=== PATIENT | male | born 1990 | race Caucasian/White ===

== ENCOUNTER 2021-03-27 18:17 | Emergency (ER) | payer BC, MEDICAID ==
[~2021-03-27] VITALS: Ht 182.9 cm; Wt 95.3 kg
[2021-03-27 19:38] LABS: Basophils # (auto) 0.1 10 ^3/uL (0-0.2); Eosinophils # (auto) 0.1 10 ^3/uL (0-0.8); Eosinophils % (auto) 2.1 % (0.0-7.0); Hematocrit 45.8 % (41.0-53.0); Hemoglobin 16.3 g/dL (13.5-17.5); Lymphocytes # (auto) 1.6 10 ^3/uL (0.4-5.4); Lymphocytes % (auto) 27.3 % (10.0-50.0); Mean Corpuscular Hgb Conc. 35.5 g/dL (32.0-36.0); Mean Corpuscular Volume 90.1 fL (80.0-100.0); Monocytes # (auto) 0.6 10 ^3/uL (0-1.3); Monocytes % (auto) 10.9 % (0.0-12.0); Neutrophils # (auto) 3.4 10 ^3/uL (1.6-8.6); Neutrophils % (auto) 58.7 % (37.0-80.0); Nucleated Red Blood Cells % 0.1 %; Red Blood Cells 5.08 10^6/uL (4.5-5.90); Red Cell Distribution Width 12.5 % (11.8-14.3); White Blood Cell 5.8 10^3/uL (4.4-10.8)
[2021-03-27 19:54] LABS: Albumin 3.8 g/dL (3.4-5.0); Anion Gap 5 (5-15); Blood Alcohol < 3.0 mg/dL (0-5); Blood Urea Nitrogen 16 mg/dL (7-18); Calcium 8.6 mg/dL (8.5-10.1); Carbon Dioxide 30 mmol/L (21-32); Chloride 104 mmol/L (98-107); Glucose 110 mg/dL (74-106); Potassium 3.8 mmol/L (3.5-5.1); Sodium 139 mmol/L (136-145)
[2021-03-27 19:57] LABS: Alanine Aminotransferase 34 U/L (16-61); Alkaline Phosphatase 105 U/L (45-117); Aspartate Aminotransferase 21 U/L (15-37); BUN/Creatinine Ratio 16.2; Bilirubin, Total 0.4 mg/dL (0.2-1.0); GFR African American 115 mL/min; GFR Non-African American 95 mL/min
[2021-03-27 20:24] VITALS: BP 122/81
== END 2021-03-27 20:25 | disposition home or self-care (01) ==
LOC: EDBD 18:17 → ER 18:19
DX: R55 Syncope and collapse (principal); F12.10 Cannabis abuse, uncomplicated
CPT/HCPCS: 36415; 70450; 71045; 80053; 80320; 85025; 93005

== ENCOUNTER 2023-09-09 09:57 | Emergency (ER) | payer BC, MEDICAID ==
[~2023-09-09] VITALS: Ht 182.9 cm; Wt 92.8 kg
[2023-09-09 10:23] VITALS: BP 152/92; PULSE 82; RESP 18; TEMP 98.1; O2SAT 98
[2023-09-09 11:14] LABS: Basophils # (auto) 0.1 10 ^3/uL (0-0.2); Basophils % (auto) 2.1 % (0.0-2.0); Eosinophils # (auto) 0.1 10 ^3/uL (0-0.8); Eosinophils % (auto) 2.4 % (0.0-7.0); Hematocrit 45.7 % (41.0-53.0); Hemoglobin 16.2 g/dL (13.5-17.5); Lymphocytes # (auto) 1.7 10 ^3/uL (0.4-5.4); Lymphocytes % (auto) 41.7 % (10.0-50.0); Mean Corpuscular Hemoglobin 31.7 pg (28.0-32.0); Mean Corpuscular Hgb Conc. 35.4 g/dL (32.0-36.0); Mean Corpuscular Volume 89.4 fL (80.0-100.0); Monocytes # (auto) 0.4 10 ^3/uL (0-1.3); Monocytes % (auto) 10.7 % (0.0-12.0); Neutrophils # (auto) 1.7 10 ^3/uL (1.6-8.6); Neutrophils % (auto) 43.1 % (37.0-80.0); Nucleated Red Blood Cells % 0.2 %; Red Blood Cells 5.11 10^6/uL (4.5-5.90); Red Cell Distribution Width 12.3 % (11.8-14.3)
[2023-09-09 11:18] LABS: Chloride 108 mmol/L (98-107); Sodium 140 mmol/L (136-145)
[2023-09-09 11:19] LABS: Anion Gap 3 (5-15); Calcium 9.7 mg/dL (8.7-10.4); Carbon Dioxide 29 mmol/L (20-30)
[2023-09-09 11:24] LABS: BUN/Creatinine Ratio 10.6 (10.0-20.0); Blood Urea Nitrogen 10 mg/dL (9-23); Glucose 106 mg/dL (74-106)
[2023-09-09] MEDS ORDERED: NAP500T PO (11:48)
[2023-09-09] MEDS: KETOROLAC TROMETH 30 MG/ML 1ML VIAL IM ONE (12:20)
== END 2023-09-09 12:22 | disposition home or self-care (01) ==
LOC: ER 09:57
DX: S86.812A Strain of other muscle(s) and tendon(s) at lower leg level, left leg, initial encounter (principal); F15.90 Other stimulant use, unspecified, uncomplicated; Z79.899 Other long term (current) drug therapy; X58.XXXA Exposure to other specified factors, initial encounter; Y93.89 Activity, other specified; Y92.096 Garden or yard of other non-institutional residence as the place of occurrence of the external cause; Y99.8 Other external cause status
CPT/HCPCS: 36415; 80048; 85025; 85379; 96372; 99283; J1885

== ENCOUNTER 2024-12-21 06:59 | Inpatient (IN) | payer MEDICAID, SELFPAY ==
[~2024-12-21] VITALS: Ht 182.9 cm; Wt 90.0 kg
[~2024-12-21 06:59] MED LIST: NAP500T PO
--- NOTE | 2024-12-21 07:19 | ECG ---
[facility] Test Date: 2024-12-21 Test Time: 07:11:01 Pat Name: CHAS PRESCOTT Department[facility] ED Room: [address] [place] [address] Gender: M Residential Advisor: SAM : 1990 Requested By: DARRION KHAN Order Number: [id number] Reading MD: Jose Luis Marie Measurements Intervals [place] Rate: 48 P: 69 NH: 149 QRS: 62 QRSD: 98 T: 71 QT: 477 QTc: 427 Interpretive Statements Sinus bradycardia Electronically Signed On 12-21-2024 15:19:02 PDT by Jose Luis Marie Please click the below link to view image of tracing.
--- NOTE | 2024-12-21 07:20 | ED.PDOC ---
HPI Comments 34 year old male presents to the ED with a chief complaint of chest pain onset today (12/21/24). Per EMS, patient was driving to work, began experiencing RT sided chest pain, initially rated pain 7/10, currently rates pain 1/10. Patient states he began experiencing Rt sided chest pain, described as a heavy sensation, as well as dizziness, nausea, LT sided facial tingling. He also states he has been under severe stress recently. Patient experienced similar symptoms in the past, had workup, was negative. Denies shortness of breath, fever, chills, cough, cold, congestion, vomiting, diarrhea, abdominal pain, headache, dysuria. No other symptoms or modifying factors present at this time. Time Seen by MD: 07:15 Primary Care Provider: RUPERT Reviewed Notes: Medications, Allergies Allergies: Coded Allergies: NO KNOWN ALLERGIES (Unverified , 03/27/21) Home Meds Active Scripts Naproxen (NAPROSYN TABLET) 500 Mg Tb, 1 TAB PO BIDPC for 10 Days, #20 TAB 0 Refills Prov:GIULIANA MCDANIEL NP 09/09/23 Information Source: Patient, Emergency Med Personnel Mode of Arrival: EMS Severity: Moderate Timing: Hours Duration: Since onset Prehospital treatment: None Location: Chest (R) Radiation: No Radiation Quality: Sharp, Heavy Onset: At Rest Cardiac Risk Factors: None PE Risk Factors: None History of: Similar pain in past Modifying Factors: Nothing Past Medical History PAST MEDICAL HISTORY: Denies Surgical History: Denies all surgeries Family History Family History: No family hx of Cancer, No family hx of DM, No family hx of Heart cherri Social History Smoker: Non-Smoker Alcohol: Occasionally Drugs: Denies Drug Use, Marijuana Lives In: Home Constitutional: denies: chills, diaphoresis, fatigue, fever, malaise, sweats, weakness, others EENTM: denies: blurred vision, double vision, ear bleeding, ear discharge, ear drainage, ear pain, ear ringing, eye pain, eye redness, hearing loss, mouth pain, mouth swelling, nasal discharge, nose bleeding, nose congestion, nose pain, photophobia, tearing, throat pain, throat swelling, voice changes, others Respiratory: denies: cough, hemoptysis, orthopnea, SOB at rest, shortness of breath, SOB with excertion, stridor, wheezing, others Cardiovascular: reports: chest pain; denies: dizzy spells, diaphoresis, Dyspnea on exertion, edema, irregular heart beat, left arm pain, lightheadedness, palpitations, PND, syncope, others Gastrointestinal: reports: nausea; denies: abdomen distended, abdominal pain, blood streaked bowels, constipated, diarrhea, dysphagia, difficulty swallowing, hematemesis, melena, poor appetite, poor fluid intake, rectal bleeding, rectal pain, vomiting, others Genitourinary: denies: burning, dysuria, flank pain, frequency, hematuria, incontinence, penile discharge, penile sore, pain, testicle pain, testicle swelling, urgency, others Neurological: reports: dizziness, tingling (LT facial); denies: fainting, headache, left sided numbness, left sided weakness, numbness, paresthesia, pre-existing deficit, right sided numbness, right sided weakness, seizure, speech problems, tremors, weakness, others Musculoskeletal: denies: back pain, gout, joint pain, joint swelling, muscle pain, muscle stiffness, neck pain, others Integumetry: denies: bruises, change in color, change in hair/nails, dryness, laceration, lesions, lumps, rash, wounds, others Allergic/Immunocompromised: denies: Difficulty Healing, Frequent Infections, Hives, Itching, others Hematologic/Lymphatic: denies: anemia, blood clots, easy bleeding, easy bruising, swollen glands, others Endocrine: denies: excessive hunger, excessive sweating, excessive thirst, excessive urination, flushing, intolerance to cold, intolerance to heat, unexplained weight gain, unexplained weight loss, others Psychiatric: denies: anxiety, bipolar disorder, depression, hopeless, panic disorder, schizophrenia, sleepless, suicidal, others All Other Systems: Reviewed and Negative Physical Exam General Appearance: Moderate Distress, Normal HEENT: Normal ENT Inspection, Pharynx Normal, TMs Normal Neck: Full Range of Motion, Non-Tender, Normal, Normal Inspection Respiratory: Chest Non-Tender, Lungs Clear, No Accessory Muscle Use, No Respiratory Distress, Normal Breath Sounds Cardiovascular: Bradycardia, No Edema, No JVD, No Murmur, No Gallop, Normal Peripheral Pulses Breast Exam: Deferred Gastrointestinal: No Organomegaly, Non Tender, No Pulsatile Mass, Normal Bowel Sounds, Soft Genitalia: Deferred Pelvic: Deferred Rectal: Deferred Extremities: No calf tenderness, Normal capillary refill, Normal inspection, Normal range of motion, Non-tender, No pedal edema Musculoskeletal : Apperance: Normal Neurologic: Alert, jockey agent II-XII nml as Tested, No Motor Deficits, Normal Affect, Normal Mood, No Sensory Deficits Cerebellar Function: Normal Reflexes: Normal Skin: Dry, Normal Color, Warm Peripheral Pulses: 3+ Radial (R), 3+ Radial (L) Lymphatic: No Adenopathy EKG EKG : Pulse Rate (adult): 48 Cardiac Rhythm: SB Was a procedure done? Was a procedure done?: No CP Differential Dx Differential Diagnosis: A-fib, A-Flutter, Angina, Anxiety / Panic Attack, Atrial Dysrhythmia, Electrolyte Disorder X-Ray, Labs, Meds, VS Vital Signs Date Time Temp Pulse Resp B/P (MAP) Pulse Ox O2 Delivery O2 Flow Rate FiO2 12/21/24 12:00 66 12/21/24 10:12 44 12/21/24 08:26 98.2 51 16 136/87 (103) 100 98.2 12/21/24 08:26 51 16 100 Room Air 12/21/24 08:08 45 12/21/24 07:20 48 12/21/24 07:11 48 12/21/24 07:11 97.9 64 16 131/82 98 97.9 Lab Test 12/21/24 10:06 12/21/24 08:01 12/21/24 07:08 Range/Units D-Dimer, Quantitative < 0.19 0.0-0.49 mg/L FEU Troponin I High Sensitivity < 3 L < 3 L < 3 L </=54 ng/L White Blood Count 5.5 4.4-10.8 10^3/uL Red Blood Count 5.15 4.5-5.90 10^6/uL Hemoglobin 16.3 13.5-17.5 g/dL Hematocrit 45.5 41.0-53.0 % Mean Corpuscular Volume 88.4 80.0-100.0 fL Mean Corpuscular Hemoglobin 31.7 28.0-32.0 pg Mean Corpuscular Hemoglobin Concent 35.9 32.0-36.0 g/dL Red Cell Distribution Width 12.4 11.8-14.3 % Platelet Count 201 140-450 10^3/uL Mean Platelet Volume 9.7 6.9-10.8 fL Neutrophils (%) (Auto) 73.9 37.0-80.0 % Lymphocytes (%) (Auto) 13.9 10.0-50.0 % Monocytes (%) (Auto) 9.2 0.0-12.0 % Eosinophils (%) (Auto) 1.9 0.0-7.0 % Basophils (%) (Auto) 1.1 0.0-2.0 % Neutrophils # (Auto) 4.1 1.6-8.6 10 ^3/uL Lymphocytes # (Auto) 0.8 0.4-5.4 10 ^3/uL Monocytes # (Auto) 0.5 0-1.3 10 ^3/uL Eosinophils # (Auto) 0.1 0-0.8 10 ^3/uL Basophils # (Auto) 0.1 0-0.2 10 ^3/uL Nucleated Red Blood Cells 0.1 % Sodium Level 143 136-145 mmol/L Potassium Level 4.1 3.5-5.1 mmol/L Chloride Level 108 H 98-107 mmol/L Carbon Dioxide Level 26 20-31 mmol/L Anion Gap 9 5-15 Blood Urea Nitrogen 11 9-23 mg/dL Creatinine 1.02 0.700-1.30 mg/dL Glomerular Filtration Rate Calc 100 >90 mL/min BUN/Creatinine Ratio 10.8 10.0-20.0 Serum Glucose 110 H 74-106 mg/dL Hemoglobin A1c 4.9 <5.7 % A1C Calcium Level 9.3 8.7-10.4 mg/dL Triglycerides Level 51 < 150 mg/dL Cholesterol Level 134 < 200 mg/dL LDL Cholesterol 97 < 100 mg/dL HDL Cholesterol 30 L 40-59 mg/dL Thyroid Stimulating Hormone (TSH) 1.14 0.55-4.78 uIU/mL Current Medications Medications (Trade) Dose Ordered Sig/Jaun Route Start Time Stop Time Status Last Admin Aspirin 325 mg ONCE ONCE PO 12/21/24 07:30 12/21/24 07:31 DC 12/21/24 07:35 Patient alert. Complaining of chest pain. Was given aspirin. Vitals stable. EKG does show sinus bradycardia. Saturation pristine on room air. He does not exercise. He was complaining of dizziness. Explained to the patient. Continue monitoring. Time of 1ST Reevaluation: 07:45 Reevaluation 1ST: Unchanged Patient Education/Counseling: Diagnosis, Treatment, Prognosis Family Education/Counseling: No Family Present SEPSIS Sepsis Screen Physician Orders Electrocardigram (12/21/24 07:14) Electrocardigram (12/21/24 08:14) Electrocardigram (12/21/24 10:14) Head Without Contrast (12/21/24 09:15) Vital Signs Date Time Temp Pulse Resp B/P (MAP) Pulse Ox O2 Delivery O2 Flow Rate FiO2 12/21/24 12:00 66 12/21/24 10:12 44 12/21/24 08:26 98.2 51 16 136/87 (103) 100 98.2 12/21/24 08:26 51 16 100 Room Air 12/21/24 08:08 45 12/21/24 07:20 48 12/21/24 07:11 48 12/21/24 07:11 97.9 64 16 131/82 98 97.9 Laboratory Tests Test 12/21/24 07:08 White Blood Count 5.5 10^3/uL (4.4-10.8) Medications Medications Dose Ordered Sig/Jaun Route Start Time Stop Time Status Last Admin Dose Admin Aspirin 325 mg ONCE ONCE PO 12/21/24 07:30 12/21/24 07:31 DC 12/21/24 07:35 Departure 1 Departure Time of Disposition: 09:15 Impression: Primary Impression: Symptomatic bradycardia Disposition: ADMITTED INPATIENT Admit to: Med Surg Condition: Guarded Critical Care Note Critical Care Time?: Yes (90 min-critical care time only) Stability Stability form required: No Heart Score Heart Score: Heart Score Response (Comments) Value History Slightly Suspicious 0 EKG Normal 0 Age <45 0 Risk Factors No known risk factors 0 Troponin Normal limit 0 Total 0 I personally scribed for DARRION KHAN MD ([email or web address]) on 12/21/24 at 07:20. Electronically submitted by Olivia Garcia [email or web address]). DARRION KHAN MD Dec 21, 2024 07:20
[2024-12-21 07:35] LABS: Potassium 4.1 mmol/L (3.5-5.1); Sodium 143 mmol/L (136-145)
[2024-12-21 07:36] LABS: Anion Gap 9 (5-15); Calcium 9.3 mg/dL (8.7-10.4); Carbon Dioxide 26 mmol/L (20-31)
[2024-12-21 07:41] LABS: BUN/Creatinine Ratio 10.8 (10.0-20.0); Blood Urea Nitrogen 11 mg/dL (9-23)
[2024-12-21 07:51] LABS: Chloride 108 mmol/L (98-107); Glucose 110 mg/dL (74-106)
[2024-12-21 10:14] LABS: Hematocrit 45.5 % (41.0-53.0); Hemoglobin 16.3 g/dL (13.5-17.5); Mean Corpuscular Hemoglobin 31.7 pg (28.0-32.0); Mean Corpuscular Volume 88.4 fL (80.0-100.0); Nucleated Red Blood Cells % 0.1 %
--- NOTE | 2024-12-21 10:19 | DVH ---
EXAM: CT HEAD WITHOUT CONTRAST INDICATION: dizzy TECHNIQUE: CT of the head without intravenous contrast. Radiation Dose : 1. Head: CT Dose: CTDI volume is 62.91 mGy. Dose-length product is 1239.52 mGy*cm The dose indicators for CT are the volume Computed Tomography (CT) Dose Index (CTDIvol) and the Dose Length Product (DLP), and are measured in units of mGy and mGy-cm, respectively. These indicators are not patient dose, but values generated from the CT scanner acquisition factors. The report includes radiation exposure data for exposures received during this examination. COMPARISON: None FINDINGS: There is no evidence of acute intracranial hemorrhage, extra-axial collection, mass effect, midline s hift, herniation or hydrocephalus. The ventricles, sulci and cisterns are age appropriate. The llanos-white differentiation is intact. The visualized paranasal sinuses and mastoid air cells are clear. The surrounding soft tissues and osseous structures are unremarkable. IMPRESSION: No acute intracranial abnormality. Radiation optimization: All CT scans at this facility use at least one of these dose optimization maria ines hniques: automated exposure control mA and/or kV adjustment per patient size (includes targeted exam s where dose is matched to clinical indication) or iterative reconstruction.
[2024-12-21] MEDS ORDERED: NITROGLYCERIN 0.4 MG SL TAB SL PRN (12:15)
[2024-12-21] MEDS ORDERED: HYDROcodone-ACET 5/325MG TAB PO PRN (12:15)
[2024-12-21] MEDS ORDERED: DOCUSATE SOD 100 MG CAP PO PRN (12:15)
[2024-12-21] MEDS ORDERED: ACETAMINOPHEN 325 MG TAB PO PRN (12:15)
[2024-12-21] MEDS ORDERED: MORPHINE SULFATE INJ 2 MG/ml SYRG IV PRN (12:15)
[2024-12-21] MEDS ORDERED: ONDANSETRON HCL 4 MG/2 ML VIAL IV PRN (12:15)
--- NOTE | 2024-12-21 12:29 | DVHHP2 ---
History of Present Illness Reason for Visit: Chest pain History of Present Illness Adrian Dooley II is a 34-year-old male with no significant past medical history, who came to the hospital for complaints of chest pain and numbness and tingling. Patient states he was driving to work when he suddenly started having numbness and tingling of his face, fingers, and toes. He [place] off the freeway and became nauseated, with chest pressure/heaviness. He called his , then called EMS when his symptoms continued to worsen. When EMS arrived he attempted to get out of his car, but was so weak he was unable to ambulate and had to be helped to get to the gurney. About 4 years ago patient had a syncopal episode, he was seen and treated here. At that time his heart rate was mostly in the 60's. Last year he was seen here for something unrelated and his heart rate was in the 70-80's. Past Surgical History: None Smoke: No ALCOHOL: none Drugs: None Lives: with Family Domestic Violence: Neg Review of Systems Constitutional: Yes: Sweats; No: Fever, Chills, Weakness, Malaise, Other Eyes: No: Pain, Vision change, Conjunctivae inflammation, Eyelid inflammation, Other, Redness ENT: No: Ear pain, Ear discharge, Nose pain, Nose discharge, Nose congestion, Mouth pain, Mouth swelling, Throat pain, Throat swelling, Other Respiratory: No: Cough, Dry, Shortness of breath, SOB with excertion, Wheezing, Hemoptysis, Pleuritic Pain, Sputum, Wheezing, Other Cardiovascular: Chest Pain (pressure); No: Palpitations, Orthopnea, Paroxysmal Noc. Dyspnea, Edema, Lt Headedness, Other Gastrointestinal: Nausea; No: Vomiting, Abdominal Pain, Diarrhea, Constipation, Melena, Hematochezia, Other Genitourinary: No Dysuria, No Frequency, No Incontinence, No Hematuria, No Retention, No Other Musculoskeletal: No: other, neck pain, shoulder pain, arm pain, back pain, hand pain, leg pain, foot pain Skin: No: Rash, Lesions, Jaundice, Bruising, Other Neurological: Weakness, Numbness, Incoordination; No: Change in speech, Confusion, Seizures, Other Allergies: Coded Allergies: NO KNOWN ALLERGIES (Unverified , 03/27/21) Exam Vital Signs Vital Signs Date Time Temp Pulse Resp B/P (MAP) Pulse Ox O2 Delivery O2 Flow Rate FiO2 12/21/24 10:12 44 12/21/24 08:26 98.2 16 136/87 (103) 100 98.2 12/21/24 08:26 Room Air General Appearance: Alert, Oriented X3, Cooperative, moderate distress HEENT: Atraumatic, PERRLA Respiratory: Clear to auscultation, Normal air movement Cardiovascular: Normal S1, Normal S2, Other (SB) Abdominal: Normal bowel sounds, Soft, No tenderness, No hepatospenomegaly Extremities: No clubbing, No cyanosis, No edema, Normal pulses, No tenderness/swelling Skin: No rashes, No breakdown, No significant lesion Neuro: Normal gait, Normal speech, Strength at 5/5 X4 ext Psych/Mental Status: Mental status NL, Mood NL Labs/Xrays Labs Test 12/21/24 10:06 12/21/24 07:08 Range/Units Troponin I High Sensitivity < 3 L </=54 ng/L White Blood Count 5.5 4.4-10.8 10^3/uL Red Blood Count 5.15 4.5-5.90 10^6/uL Hemoglobin 16.3 13.5-17.5 g/dL Hematocrit 45.5 41.0-53.0 % Mean Corpuscular Volume 88.4 80.0-100.0 fL Mean Corpuscular Hemoglobin 31.7 28.0-32.0 pg Mean Corpuscular Hemoglobin Concent 35.9 32.0-36.0 g/dL Red Cell Distribution Width 12.4 11.8-14.3 % Platelet Count 201 140-450 10^3/uL Mean Platelet Volume 9.7 6.9-10.8 fL Neutrophils (%) (Auto) 73.9 37.0-80.0 % Lymphocytes (%) (Auto) 13.9 10.0-50.0 % Monocytes (%) (Auto) 9.2 0.0-12.0 % Eosinophils (%) (Auto) 1.9 0.0-7.0 % Basophils (%) (Auto) 1.1 0.0-2.0 % Neutrophils # (Auto) 4.1 1.6-8.6 10 ^3/uL Lymphocytes # (Auto) 0.8 0.4-5.4 10 ^3/uL Monocytes # (Auto) 0.5 0-1.3 10 ^3/uL Eosinophils # (Auto) 0.1 0-0.8 10 ^3/uL Basophils # (Auto) 0.1 0-0.2 10 ^3/uL Nucleated Red Blood Cells 0.1 % Sodium Level 143 136-145 mmol/L Potassium Level 4.1 3.5-5.1 mmol/L Chloride Level 108 H 98-107 mmol/L Carbon Dioxide Level 26 20-31 mmol/L Anion Gap 9 5-15 Blood Urea Nitrogen 11 9-23 mg/dL Creatinine 1.02 0.700-1.30 mg/dL Glomerular Filtration Rate Calc 100 >90 mL/min BUN/Creatinine Ratio 10.8 10.0-20.0 Serum Glucose 110 H 74-106 mg/dL Calcium Level 9.3 8.7-10.4 mg/dL EXAM: CT HEAD WITHOUT CONTRAST FINDINGS: There is no evidence of acute intracranial hemorrhage, extra-axial collection, mass effect, midline shift, herniation or hydrocephalus. The ventricles, sulci and cisterns are age appropriate. The llanos-white differentiation is intact. The visualized paranasal sinuses and mastoid air cells are clear. The surrounding soft tissues and osseous structures are unremarkable. IMPRESSION: No acute intracranial abnormality. SEPSIS Sepsis Screen Date sepsis recognized/suspect: Dec 21, 2024 Time Sepsis recognized/suspect: 723 Recent Procedure: No On Antibiotic Therapy: No Respiratory Rate >20: No Heart Rate >90: No Temp<36 C (96.8 F) or >38.3 C: No SBP <90 or MAP <65 mmHG: No New Acute Mental Status Change: No Is the patient on CPAP, BIPAP,: No Physician Orders Electrocardigram (12/21/24 08:14) Electrocardigram (12/21/24 10:14) Head Without Contrast (12/21/24 09:15) Admit (12/21/24 12:02) Code Status (12/21/24 12:02) Hydrocodone-Acet 5/325mg Tab ([place] 5/32 (12/21/24 12:15) Ondansetron Hcl (Zofran) (12/21/24 12:15) Docusate Sodium Capsule (Colace Capsule) (12/21/24 12:15) Fall Risk Precautions In Place QSHIFT (12/21/24 12:02) Complete Blood Count (12/22/24 04:00) Comprehensive Metabolic Panel (12/22/24 04:00) Echo 2d Mode Cardiac Dop (12/21/24 12:02) Condition: Serious (12/21/24 12:02) Acetaminophen Tablet (Tylenol Tablet) (12/21/24 12:15) Nitroglycerin Sublingual (Ntrostat Subli (12/21/24 12:15) Morphine Sulfate Injection (12/21/24 12:15) Stat Ekg For Chest Pain (12/21/24 12:02) Notify Md Of Changes From Base (12/21/24 12:02) Environmental Health Safety Engineer For 24 Hours (12/21/24 12:02) Emergency Dysrhythmia Protocol (12/21/24 12:02) Rhythm Strips Once Every Shift (12/21/24 12:02) Oxygen By Nasal Cannula (12/21/24 12:02) * Cardiology Consult (12/21/24 12:02) Vital Signs Date Time Temp Pulse Resp B/P (MAP) Pulse Ox O2 Delivery O2 Flow Rate FiO2 12/21/24 10:12 44 12/21/24 08:26 98.2 51 16 136/87 (103) 100 98.2 12/21/24 08:26 51 16 100 Room Air 12/21/24 08:08 45 12/21/24 07:20 48 12/21/24 07:11 48 12/21/24 07:11 97.9 64 16 131/82 98 97.9 Laboratory Tests Test 12/21/24 07:08 White Blood Count 5.5 10^3/uL (4.4-10.8) Medications Medications Dose Ordered Sig/Jaun Route Start Time Stop Time Status Last Admin Dose Admin Aspirin 325 mg ONCE ONCE PO 12/21/24 07:30 12/21/24 07:31 DC 12/21/24 07:35 325 MG Assessment/Plan Assessment/Plan Assessment: Symptomatic bradycardia, Possible anxiety, R/O structural cardiac defect, Plan: Admit to Tele, Cardiology consult, Continuous telemetry monitoring, ECHO, Carotid duplex, TSH, A1c, Lipide panel, Plan discussed with: Patient My Orders Orders - DEZ CARMICHAEL PHILOSOPHY INSTRUCTOR Procedure Category Date Status Time Admit ADMIT 12/21/24 Transmitted 12:02 Code Status CODE 12/21/24 Transmitted 12:02 Hydrocodone-Acet PHA 12/21/24 Transmitted 5/325mg Tab ([place]den 12:15 Ondansetron Hcl PHA 12/21/24 Transmitted (Zofran) 12:15 Docusate Sodium PHA 12/21/24 Transmitted Capsule (Colace 12:15 Fall Risk Precautions SEVERO 12/21/[address] 12:02 Complete Blood Count LAB 12/22/24 Verified 04:00 Comprehensive LAB 12/22/24 Verified Metabolic Panel 04:00 Echo 2d Mode Cardiac US 12/21/24 Transmitted DOP 12:02 Condition: Serious SEVERO 12/21/24 Transmitted 12:02 Acetaminophen Tablet PHA 12/21/24 Transmitted (Tylenol Tablet) 12:15 Nitroglycerin PHA 12/21/24 Transmitted Sublingual (Ntrostat 12:15 Morphine Sulfate PHA 12/21/24 Transmitted Injection 12:15 Stat Ekg For Chest SEVERO 12/21/24 Transmitted Pain 12:02 Notify Of Changes SEVERO 12/21/24 Transmitted From Base 12:02 Environmental Health Safety Engineer For SEVERO 12/21/24 Transmitted 24 Hours 12:02 Emergency Dysrhythmia SEVERO 12/21/24 Transmitted Protocol 12:02 Rhythm Strips Once SEVERO 12/21/24 Transmitted Every Shift 12:02 Oxygen By Nasal RT 12/21/24 Transmitted Cannula 12:02 * Cardiology Consult CONS 12/21/24 Transmitted 12:02 Date of Service: Dec 21, 2024 Billing Provider: DEZ CARMICHAEL Common Visit Codes: [id number] INP/OBS CARE (MOD) DEZ CARMICHAEL Dec 21, 2024 12:29
[2024-12-21 13:11] LABS: Triglycerides 51 mg/dL (< 150)
--- NOTE | 2024-12-21 13:11 | DVHINCON2 ---
Date Seen: Dec 21, 2024 Referring Physician YUMIKO Pugh Reason for Consultation Symptomatic bradycardia History of Present Illness This is a pleasant 34-year-old man who presented to the emergency room via EMS with a chief complaint of dizziness this morning. 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 Soon after the patient experienced chest pain described as right-sided, radiating across the chest wall area to the left side, sharp in nature, constant for approximately 40 minutes, and associated with mild SOB, and unilateral hand cramping/stiffness, head fog, and chills. Denies sick contacts at home. Admits to increased stress levels. Upon arrival to the emergency room he underwent multiple 12 lead electrocardiogram revealing a normal sinus rhythm without evidence of atrioventricular blocks, sinus pauses, or ectopy. night monitor reviewed revealing a heart rate as low as 48 bpm at rest. Serial troponin levels are negative. Denies any past medical history. Past Medical History Past medical history reviewed. No other significant than mentioned above. Past Surgical History Past surgical history reviewed. No other significant than mentioned above. Family History Family history reviewed. Social History Denies the use of illicit drugs, alcohol, or tobacco use. Allergies: Coded Allergies: NO KNOWN ALLERGIES (Unverified , 03/27/21) Home Meds Active Scripts Naproxen (NAPROSYN TABLET) 500 Mg Tb, 1 TAB PO BIDPC for 10 Days, #20 TAB 0 Refills Prov:GIULIANA MCDANIEL NP 09/09/23 Home Meds Denies any current home medications. Current Medications Current Medications Medications (Trade) Dose Ordered Sig/Jaun Route PRN Reason Start Time Stop Time Status Last Admin Acetaminophen/ Hydrocodone Bitart ([place] 5/325MG Tab) 1 tab Q4HP PRN PO MODERATE PAIN (4-6 PAIN SCALE) 12/21/24 12:15 Ondansetron HCl (Zofran) 4 mg Q4HP PRN IV NAUSEA / VOMITING 12/21/24 12:15 Docusate Sodium (Colace Capsule) 100 mg BIDPRN PRN PO FOR CONSTIPATION 12/21/24 12:15 Acetaminophen (Tylenol Tablet) 650 mg Q6HP PRN PO PAIN SCALE 1-3 OR TEMP>100.4 12/21/24 12:15 Nitroglycerin (Ntrostat Sublingual) 0.4 mg Q5MINP PRN SL FOR CHEST PAIN 12/21/24 12:15 Morphine Sulfate 2 mg Q30M PRN IV FOR CHEST PAIN 12/21/24 12:15 Review of Systems Constitutional: Chills, hot flushes Ears, Nose, & Throat: No symptom reported Eyes: No symptom reported Neurological: Dizziness Pulmonary/Respiratory: No symptom reported Cardiovascular: No symptom reported Gastrointestinal: No symptom reported Genitourinary: No symptom reported Musculoskeletal: Noncardiac chest pain, unilateral hand cramping Skin: No symptom reported Psychiatric: No symptom reported Endocrine: No symptom reported Hemotologic/Lymphatic: No symptom reported Vital Signs Vital Signs Date Time Temp Pulse Resp B/P (MAP) Pulse Ox O2 Delivery O2 Flow Rate FiO2 12/21/24 12:15 99.0 67 19 98/56 (70) 99 99.0 12/21/24 08:26 Room Air Physical Exam General Appearance: Cooperative. Well developed. Well nourished. In no acute distress Head Exam: Normal inspection Neck Exam: Normal inspection. Non-tender. Normal alignment Pulmonary/Respiratory: Chest non-tender. Clear bilateral breath sounds Cardiovascular/Chest: Regular rate and rhythm. S1, S2. NSR. No murmurs. No JVD. Peripheral Pulses: 2+ Radial (R). 2+ Radial (L). 2+ Pedal (R). 2+ Pedal (L) Abdominal Exam: Normal bowel sounds. Soft. Ankle Exam: Negative ankle edema Lower extremities: Negative lower extremity edema Neuro/Mental Status: A&O x4. Coherent Thoughts/Psych: Normal thought pattern. Appropriate mood and affect. Good judgement and insight Appearance: In no acute distress Skin Exam: Normal inspection. Normal color. Warm. Dry Labs/Diagnostic Data Labs Test 12/21/24 10:06 12/21/24 07:08 Range/Units Troponin I High Sensitivity < 3 L </=54 ng/L White Blood Count 5.5 4.4-10.8 10^3/uL Red Blood Count 5.15 4.5-5.90 10^6/uL Hemoglobin 16.3 13.5-17.5 g/dL Hematocrit 45.5 41.0-53.0 % Mean Corpuscular Volume 88.4 80.0-100.0 fL Mean Corpuscular Hemoglobin 31.7 28.0-32.0 pg Mean Corpuscular Hemoglobin Concent 35.9 32.0-36.0 g/dL Red Cell Distribution Width 12.4 11.8-14.3 % Platelet Count 201 140-450 10^3/uL Mean Platelet Volume 9.7 6.9-10.8 fL Neutrophils (%) (Auto) 73.9 37.0-80.0 % Lymphocytes (%) (Auto) 13.9 10.0-50.0 % Monocytes (%) (Auto) 9.2 0.0-12.0 % Eosinophils (%) (Auto) 1.9 0.0-7.0 % Basophils (%) (Auto) 1.1 0.0-2.0 % Neutrophils # (Auto) 4.1 1.6-8.6 10 ^3/uL Lymphocytes # (Auto) 0.8 0.4-5.4 10 ^3/uL Monocytes # (Auto) 0.5 0-1.3 10 ^3/uL Eosinophils # (Auto) 0.1 0-0.8 10 ^3/uL Basophils # (Auto) 0.1 0-0.2 10 ^3/uL Nucleated Red Blood Cells 0.1 % Sodium Level 143 136-145 mmol/L Potassium Level 4.1 3.5-5.1 mmol/L Chloride Level 108 H 98-107 mmol/L Carbon Dioxide Level 26 20-31 mmol/L Anion Gap 9 5-15 Blood Urea Nitrogen 11 9-23 mg/dL Creatinine 1.02 0.700-1.30 mg/dL Glomerular Filtration Rate Calc 100 >90 mL/min BUN/Creatinine Ratio 10.8 10.0-20.0 Serum Glucose 110 H 74-106 mg/dL Calcium Level 9.3 8.7-10.4 mg/dL Assessment Noncardiac chest pain Sinus bradycardia at rest Possible panic/anxiety attack Chronotropic incompetence, ruled out Rule out viral infection Rule out acute intoxication Plan/Recommendation (Dr. Ruano) * 12 lead electrocardiograms x3: Normal sinus rhythm without evidence of atrioventricular blocks, sinus pauses, or ectopy * Chronotropic response evaluation in the ED: optimal chronotropic response with a resting HR at 58 bpm increasing to 92 bpm with activity * Heart Score: 0 points (low score for major cardiac events). Serial troponin levels: Negative. D-Dimer: Negative. TSH level WNL * CXR/UDS/influenza A&B/COVID-19 labs pending Plan: Scheduled for a transthoracic echocardiogram to evaluate cardiac function. Obtain a baseline portable CXR, UDS, influenza A&B and COVID-19 samples. Presents with resting bradycardia with optimal chronotropic response with activity and no evidence of AV blocks, sinus pauses, or ectopi. In the setting of an unremarkable echocardiogram, there is no further cardiac work-up indicated. Thank you for allowing us to participate in this patient's care. Please call if you have any questions or concerns. This medical document was created using an electronic medical record system with voice recognition software and computerized dictation system. Although this document has been carefully reviewed, there might still be some phonetic and typographical errors. Occasional wrong-word or ``sound-alike substitutions may have occurred due to the inherent limitations of voice recognition software. These areas are purely typographical due to imperfections of the software programs and do not reflect any compromise in the patient's medical care. Please read the chart carefully and recognize, using context, where these substitutions have occurred. Plan discussed with: Patient, Spouse, Other (mother) NYHA Physical activity limitations: NA Date of Service: Dec 21, 2024 Billing Provider: BUBBA RUANO MD Cardiology Common Codes: 38502-CFSQSYE INP/OBS CARE (High) MED [facility] Dec 21, 2024 13:11
[2024-12-21 13:13] LABS: Cholesterol 134 mg/dL (< 200); HDL Cholesterol 30 mg/dL (40-59)
[2024-12-21 13:42] LABS: Urine Protein, UAD TRACE (Negative)
[2024-12-21 13:53] LABS: Amphetamine Screen, Urine Neg (NEGATIVE); Barbiturate Scree,Urine Neg (NEGATIVE); Benzodiazephine Screen, Urine Neg (NEGATIVE); Cannabinoid Screen, Urine Pos (NEGATIVE); Cocaine Screen, Urine Neg (NEGATIVE); Opiate Scree,Urine Neg (NEGATIVE); Phencyclidine Screen, Urine Neg (NEGATIVE)
--- NOTE | 2024-12-21 13:53 | DVH ---
CHEST RADIOGRAPH Indication: Bradycardia Technique: Single frontal view of the chest was obtained Comparison: CHEST PORTABLE on DOS: 03/27/21 FINDINGS: Lines and Tubes: None Lungs: No focal consolidation. Pleura: No effusion. No pneumothorax. Cardiomediastinal contours: Unremarkable Bones: No acute osseous abnormality. IMPRESSION: 1. No acute cardiopulmonary disease. 2. No significant change from 03/27/2021
[2024-12-21 14:59] LABS: COVID19 ANTIGEN SOFIA FIA NEGATIVE (NEGATIVE)
[2024-12-21 16:20] VITALS: TEMP 98.5
[2024-12-21 17:20] VITALS: BP 128/89; PULSE 61; RESP 14; O2SAT 98
--- NOTE | 2024-12-22 12:09 | DVHSR ---
APPROVED REPORT EXAM: Two-dimensional and M-mode echocardiogram with Doppler and color Doppler. Blood Pressure: 136/87 mmHg INDICATION Symptomatic bradycardia RISK FACTORS Height: 6'0", Weight: 198 DIMENSIONS LVDd5.1 (3.8-5.7cm)LA (2D)3.2 (1.9-4.0cm)Aortic Root3.5 (2.0-3.7cm) LVDs3.0 (2.5-4.0cm)LA (MM) (1.9-4.0cm)Aortic Cusp Exc2.0 (1.5-2.0cm) EF (%) 65.0 (55-70%)Rt. Atrium4.0 (1.9-4.0cm)Asc. Aorta cm IVSd1.1 (0.7-1.1cm)RV (D) (1.8-2.4cm) PWd0.8 (0.7-1.1cm) Mitral Valve MitralMitral Stenosis E wave0.85m/sMV Mean GR.mmHg A wave0.55m/sMV Peak GR.mmHg E/A ratio1.52D MVAcm2 DECEL [id number] 1/2 [place] Aortic Valve Aortic ValveAortic Stenosis V11.02m/Jean Mean GR.4mmHg V21.30m/Jean Peak GR.7mmHg LVOT Diameter2.2 (1.8-2.4cm)Doppler AVA2.98cm2 Pulmonic Valve V21.07m/s Conclusion lvef 60% normal rv function no severe valve abnormalities noted trivial pericardial effusion noted
--- NOTE | 2024-12-22 20:03 | ECG ---
[facility] Test Date: 2024-12-21 Test Time: 08:08:05 Pat Name: CHAS PRESCOTT Department: Room: 0215T A Gender: M Equine Manager: SAM : 1990 Requested By: DARRION KHAN Order Number: [id number] Reading MD: Jose Luis Marie Measurements Intervals [place] Rate: 45 P: 75 TX: 145 QRS: 65 QRSD: 92 T: 78 QT: 474 QTc: 411 Interpretive Statements Sinus bradycardia Artifact in lead(s) V5,V6 Electronically Signed On 12-29-2024 13:13:40 PST by Jose Luis Marie Please click the below link to view image of tracing.
--- NOTE | 2024-12-22 20:03 | ECG ---
[facility] Test Date: 2024-12-21 Test Time: 10:12:46 Pat Name: CHAS PRESCOTT Department: Room: 0215T A Gender: M Van Loader: SAM : 1990 Requested By: DARRION KHAN Order Number: [id number] Reading MD: Jose Luis Marie Measurements Intervals [place] Rate: 44 P: 69 DE: 152 QRS: 55 QRSD: 96 T: 67 QT: 459 QTc: 393 Interpretive Statements Sinus bradycardia Electronically Signed On 12-29-2024 13:13:42 PST by Jose Luis Marie Please click the below link to view image of tracing.
== END 2024-12-21 18:40 | disposition left against medical advice (07) | DRG 880 ==
LOC: EDUNIT# 06:59 → ER 06:59 → EDBD 06:59 → OVERFLOW 12:02 → TELE-CENTR 18:17
PROVIDERS: ADMIT Nurse Practitioner Family; ATTEND Nurse Practitioner Family
DX: F41.0 Panic disorder [episodic paroxysmal anxiety] (principal); B34.9 Viral infection, unspecified; F10.129 Alcohol abuse with intoxication, unspecified; R07.89 Other chest pain; R00.1 Bradycardia, unspecified; Z20.822 Contact with and (suspected) exposure to COVID-19; Z53.29 Procedure and treatment not carried out because of patient's decision for other reasons
CPT/HCPCS: 36415; 70450; 71045; 80048; 80061; 80307; 81001; 83036; 84443; 84484; 85025; 85379; 87426; 87804; 93005; 93306; 99291; 99292; G0378